=== PATIENT | female | born 1935 | race Caucasian/White ===

== ENCOUNTER 2018-02-12 12:44 | Inpatient (IN) | payer MEDICARE, OTHER ==
[~2018-02-12 12:44] MED LIST: CEFAZOLIN 2 Gram 2 GM/50 ML BAG IVPB ONE; CELECOXIB 100 MG CAPSULE PO ONE; FAMOTIDINE 20MG TABLET PO ONE; MECLIZINE 25 MG TABLET PO ONE; METOCLOPRAMIDE 10 MG TABLET PO ONE; VANCOMYCIN HCL 1,000 MG in DEXTROSE 5 % IN WATER 250 ML IVPB ONE
[2018-02-12] MEDS ORDERED: EPHEDRINE SULFATE 50 MG/ML ML IV ONE (14:00)
[2018-02-12] MEDS ORDERED: BUPIVACAINE 0.5% W/EPI MPF 30 ML VIAL IVP ONE (14:00)
[2018-02-12] MEDS ORDERED: LIDOCAINE 2% MDV (20MG/ML) 20ML VIAL IV ONE (14:00)
[2018-02-12] MEDS ORDERED: MIDAZOLAM HCL 2MG/2ML VIAL IV ONE (14:00)
[2018-02-12] MEDS ORDERED: PROPOFOL 10 MG/ML VIAL IV ONE (14:00)
[2018-02-12] MEDS ORDERED: TRANEXAMIC ACID 1,000 MG/10 ML ML IV ONE (14:00)
[2018-02-12 14:45] LABS: ABO GROUP B; ANTIBODY SCREEN NEGATIVE (NEGATIVE); RH TYPE POSITIVE
[2018-02-12] MEDS ORDERED: BISACODYL 10 MG SUPP RC PRN (17:55)
[2018-02-12] MEDS ORDERED: ACETAMINOPHEN 325 MG TAB PO PRN (17:55)
[2018-02-12] MEDS ORDERED: HYDROCODONE/APAP 5/325MG TABLET PO PRN (17:55)
[2018-02-12] MEDS ORDERED: DIPHENHYDRAMINE HCL 25 MG CAPSULE PO PRN (17:55)
[2018-02-12] MEDS ORDERED: NALOXONE 0.4 MG/1 ML VIAL IVP PRN (17:55)
[2018-02-12] MEDS ORDERED: HYDROMORPHONE HCL 2 MG/ML VIAL IM PRN (17:55)
[2018-02-12] MEDS ORDERED: ZOLPIDEM TARTRATE 5 MG TABLET PO PRN (17:55)
[2018-02-12] MEDS ORDERED: TRAMADOL HCL 50 MG TABLET PO PRN (17:55)
[2018-02-12] MEDS ORDERED: KETOROLAC 30 MG/ML VIAL IVP PRN ×2 (17:55)
[2018-02-12] MEDS ORDERED: ONDANSETRON HCL IV 4 MG/2 ML VIAL IVP PRN (17:55)
[2018-02-12] MEDS ORDERED: MAGNESIUM HYDROXIDE 30 ML UDC PO PRN (17:55)
[2018-02-12] MEDS ORDERED: HYDROCODONE/APAP 10/325 TABLET PO PRN (17:55)
[2018-02-12] MEDS ORDERED: ACETAMINOPHEN W/ CODEINE 300MG/60MG TABLET PO PRN ×2 (17:55)
[2018-02-12] MEDS ORDERED: AL HYDROX/MAG HYDROX 30ML UD PO PRN (17:55)
[2018-02-12] MEDS: POTASSIUM CHLORIDE/D5-0.9%NACL 20 MEQ/1,000 ML BAG IV SCH (19:50)
[2018-02-12] MEDS: ATENOLOL 25 MG TABLET PO SCH (22:23)
[2018-02-12] MEDS: ATORVASTATIN 20 MG TABLET PO SCH (22:23)
[2018-02-12] MEDS: DOCUSATE SODIUM 100 MG CAPSULE PO SCH (22:23)
[2018-02-12] MEDS: CEFAZOLIN 2 Gram 2 GM/50 ML BAG IVPB SCH (23:20)
[2018-02-13] MEDS: HYDROCODONE/APAP 10/325 TABLET PO PRN ×6 (01:27→23:00)
[2018-02-13] MEDS: POTASSIUM CHLORIDE/D5-0.9%NACL 20 MEQ/1,000 ML BAG IV SCH ×2 (03:00→11:36)
[2018-02-13 06:51] LABS: HEMATOCRIT 33.2 % (35.0-47.0); HEMOGLOBIN 10.7 gm/dl (11.6-16.0)
[2018-02-13] MEDS: LEVOTHYROXINE SODIUM 25 MCG TABLET PO SCH (06:59)
[2018-02-13] MEDS: CEFAZOLIN 2 Gram 2 GM/50 ML BAG IVPB SCH ×2 (08:09→14:47)
--- NOTE | 2018-02-13 09:41 | Rehab Evaluation ---
Patient Information - Patient Information Diagnosis: R knee DJD Ordered Treatment: PT Evaluate and Treat Status: Initial Evaluation Surgery: Yes (TKA) Date of Surgery: 02/12/18 Past Medical/Surgical Hx: PAST MEDICAL/SURGICAL HISTORY Past Surgical History RTKA RTHA hyst humberto bowel resection c scope tonsils PMH - Respiratory Hx Respiratory Disorders No PMH - Cardiovascular Hx Cardiovascular Disorders Yes Hx Hypertension Yes: good control on meds Hx Irregular Heartbeat Yes: in past related to hypertension Exercise Tolerance Good PMH - Neuro Hx Neurological Disorders Yes Hx Headaches Yes: occassional PMH - GI Hx Gastrointestinal Disorders Yes Comment: resection for twisted bowel. loose stools since abx 1 mo ago for mastitis PMH - Hx Genitourinary Disorders No PMH - Endocrine Hx Endocrine Disorders Yes Hx Thyroid Disease Yes: on meds has benign nodules PMH - Musculoskeletal Hx Musculoskeletal Disorders Yes Hx Arthritis Yes: knees, shoulders,hands Hx Osteoporosis Yes PMH - Psych Hx Psychiatric Problems No Hx Depression Yes: in past PMH - Hematology/Oncology Hx Hematology/Oncology No Disorders Premorbid Status: Detail (Prior to hospitalization the patient was independent with all mobility and ambulated without assistive device.) Social History: Detail (The patient lives in an apartment alone with an elevator at the enterance- no stairs. The patient's bathroom in her apartment is equipped with a [id number] and elevated toilet seat. The patient does not have a walker but stated the Rehab at her apartment complex ( [facility]) will provide one. The patient has a standard can and hip kit from previous TH[facility].) Precautions: [place], Fall, Other (WBAT on the R LE.) - Time With Patient Total Time Spent With Patient (Min): 30 Treatment Procedures: Detail (Initial Evaluation and gait training.) Subjective Information - Subjective Information Per Patient (The patient complains of pain behind her R knee and difficulty moving R foot up. The patient did not rate her pain using the 0-10 pain scale.) Objective Data - Mental Status Patient Orientation: Oriented x3 - Visual Perception Appears within normal limits for therapeutic activities - ROM Not within normal limits (The patient's R knee AROM is limited s/p surgery. The patient's R ankle was passively stretched to neutral. All other AROM was WNL.) - Strength/Tone Not within normal limits (The patient's R ankle strength was in plantar flexors 4+/5, trace dorsiflexion was noted initially, after ambulating the patient was able to dorsiflexion through 25 percent of range. All other R LE strength was functional. The patient's L LE strength was 4+ to 5/5.) - Bed Mobility Independent (The patient was independent with supine to and from sit transer.) - Transfers Independent (The patient was independent with sit to stand transfer with verbal cue to push up for the surface.) - Balance Balance Sitting: Good Balance Standing: Fair (The patient required walker for support.) - Sensation Intact (The patient's sensation was intact to light touch in R LE.) - Gait Detail (The patient ambulated with wheeled walker a distance of 50 feet with supervision for safety and WBAT on the R LE. The patient was able to clear R foot but exhibited decreased heel to toe weight transfer.) Therapy Assessment - Therapy Assessment Detail (The patient was independent with bed mobility and required verbal cues for proper technique for transfers. The patient ambulated with supervision for safety only. The patient's R dorsiflexion movement improved after ambulating to 25 percent of AROM. Feel the patient will progress well with mobilty.) Problem List - Problem List Physical Therapy Problem List: Detail (1) Decreased R LE strength and knee AROM 2) Supervision for safety with ambulation) Goals - Goals Physical Therapy Goals: 1) The patient will be independent with a HEP of TKA exercises. 2) The patient will be independent with all transfers. 3) The patient will ambulate independent with wheeled walker a distance of 120 WBAT on the R LE. 4) Increase R LE strength 1/3 muscle grade. Prognosis - Prognosis Good Plan - Plan Physical Therapy Plan: PT 1-2 times a day until all inpatient PT goals have been met for gait training, transfer training, LE strengthening exercises and instruction in HEP.
[2018-02-13 09:51] LABS: BLOOD UREA NITROGEN 17 mg/dL (8-23); CREATININE 0.9 mg/dL (0.5-0.9); EST GLOMERULAR FILTRATION RATE > 60 mL/min; GLUCOSE,RANDOM 186 mg/dL (74-109)
[2018-02-13] MEDS: ATENOLOL 25 MG TABLET PO SCH ×2 (10:41→23:00)
[2018-02-13] MEDS: AMLODIPINE BESYLATE 5MG TAB PO SCH (10:42)
[2018-02-13] MEDS: DOCUSATE SODIUM 100 MG CAPSULE PO SCH ×2 (10:42→23:00)
[2018-02-13] MEDS: RIVAROXABAN 10 MG TABLET PO SCH (10:43)
[2018-02-13] MEDS: FERROUS SULFATE 325 MG TAB PO SCH (10:43)
[2018-02-13] MEDS: LISINOPRIL 10 MG TABLET PO SCH (10:43)
[2018-02-13] MEDS: ASPIRIN 81 MG TABEC PO SCH (10:43)
--- NOTE | 2018-02-13 14:56 | Rehab Evaluation ---
Patient Information - Patient Information Diagnosis: R knee DJD Ordered Treatment: OT Evaluate and Treat Status: Initial Evaluation Surgery: Yes (TKA) Date of Surgery: 02/12/18 Past Medical/Surgical Hx: PAST MEDICAL/SURGICAL HISTORY Past Surgical History RTKA RTHA hyst humberto bowel resection c scope tonsils PMH - Respiratory Hx Respiratory Disorders No PMH - Cardiovascular Hx Cardiovascular Disorders Yes Hx Hypertension Yes: good control on meds Hx Irregular Heartbeat Yes: in past related to hypertension Exercise Tolerance Good PMH - Neuro Hx Neurological Disorders Yes Hx Headaches Yes: occassional PMH - GI Hx Gastrointestinal Disorders Yes Comment: resection for twisted bowel. loose stools since abx 1 mo ago for mastitis PMH - Hx Genitourinary Disorders No PMH - Endocrine Hx Endocrine Disorders Yes Hx Thyroid Disease Yes: on meds has benign nodules PMH - Musculoskeletal Hx Musculoskeletal Disorders Yes Hx Arthritis Yes: knees, shoulders,hands Hx Osteoporosis Yes PMH - Psych Hx Psychiatric Problems No Hx Depression Yes: in past PMH - Hematology/Oncology Hx Hematology/Oncology No Disorders Premorbid Status: Detail (Prior to hospitalization the patient was independent with all mobility and ambulated without assistive device.) Social History: Detail (The patient lives alone in a 4th floor apartment with an elevator at the entrance- no stairs. The patient's bathroom in her apartment is equipped with a [id number] with grab bar, no seat and elevated toilet seat, no grab bar. The patient has a standard cane, 2 wheeled walker and hip kit from previous THR. She states staff complete all home mgmt and meal prep and she is only responsible for light laundry tasks.) Precautions: [place], Fall, Other (WBAT on the R LE.) - Time With Patient Total Time Spent With Patient (Min): 45 Treatment Procedures: Detail (OT eval low complexity) Subjective Information - Subjective Information Per Patient Objective Data - Pain Pain Present: Yes (3-12/18) - Mental Status Patient Orientation: Oriented x3 - Visual Perception Appears within normal limits for therapeutic activities - ROM Not within normal limits (Left UE AROM WNL, Right UE limited due to injury.) - Strength/Tone Not within normal limits (Left UE MMT 5/5, right UE strength functional but not formally tested.) - Coordination Appears within normal limits for therapeutic activities - Bed Mobility Independent (Ind with supine to sit.) - Transfers Independent (Ind with sit to stand from EOB and chair.) - Balance Balance Sitting: Good Balance Standing: Good - Sensation Intact - Gait Detail (Pt ambulating in room with 2 wheeled walker Indly.) - ADL's/IADL's Detail (Pt able to recall modified dressing technique and completed total body dressing Indly. She was able to amb to bathroom and complete all grooming/ hygiene tasks Indly at sink.) Therapy Assessment - Therapy Assessment Detail (Pt is safe and Ind with total body dressing, grooming and hygiene tasks. ) Problem List - Problem List Physical Therapy Problem List: Detail (1) Decreased R LE strength and knee AROM 2) Supervision for safety with ambulation) Occupational Therapy Problem List: Detail (No current OT problems identified at this time.) Goals - Goals Physical Therapy Goals: 1) The patient will be independent with a HEP of TKA exercises. 2) The patient will be independent with all transfers. 3) The patient will ambulate independent with wheeled walker a distance of 120 WBAT on the R LE. 4) Increase R LE strength 1/3 muscle grade. Occupational Therapy Goals: No current IP OT goals identified. Prognosis - Prognosis Good Plan - Plan Physical Therapy Plan: PT 1-2 times a day until all inpatient PT goals have been met for gait training, transfer training, LE strengthening exercises and instruction in HEP. Occupational Therapy Plan: Discharge from IP OT at this time. Thank you for this referral.
--- NOTE | 2018-02-13 20:28 | Operative Note ---
DATE OF SURGERY: 02/12/2018 PREOPERATIVE DIAGNOSIS: END-STAGE ARTHROSIS OF THE RIGHT KNEE. POSTOPERATIVE DIAGNOSIS: END-STAGE ARTHROSIS OF THE RIGHT KNEE. PROCEDURE: CEMENTED RIGHT TOTAL KNEE ARTHROPLASTY USING PRICE & NEPHEW IMELDA II COMPONENTS, WITH A SIZE 5 COBALT CHROME FEMUR, SIZE 5 STEMMED TIBIAL BASEPLATE, AN 11 MM LIPPED TIBIAL INSERT, AND A 35 MM ALL-PLASTIC PATELLA. STAFF SURGEON: LEATHA NEWELL M.D. ANESTHESIA: SPINAL. PREPARATION: CHLORAPREP. INDIVIDUAL CONSIDERATIONS: NONE. PROCEDURE: The patient was taken to the Operating Room and placed supine on the operating table. She had a successful induction of a spinal anesthetic. Her right lower extremity was prepped and then draped in the usual fashion. The patient had an anterior approach to the knee. The limb was elevated and the tourniquet was inflated to 250 mmHg. Sharp dissection was carried down through the skin and subcutaneous tissues. Small veins were coagulated with a Bovie. A medial arthrotomy was performed. The patella was everted and the knee was flexed. She had a valgus knee with exposed bone medially with bone loss and advanced arthrosis of the patellofemoral compartment with large marginal osteophytes. The fat pad was resected, the ACL was sacrificed, provisional anterior meniscectomies were performed and the capsule was released from the medial proximal tibia. The initial femoral pilot captain hole was then made free hand. The intramedullary femoral cutting jig was placed. It was cut in 7.0 degrees of valgus and adjusted for rotation, secured with pins for a 10 mm resection. The initial transverse cut was then made. The skin guide was placed in the anterior and posterior pilot captain holes. It was found that a size 5 would be appropriate but I needed to translate it anteriorly 2 mm to fit. The anterior and posterior cuts followed by chamfer cuts were made, osteophytes were removed, and a size 5 trial was placed and found to fit well. The tibia was brought forward and the remainder of the meniscal remnants were removed with a Bovie. The extraarticular tibial cutting jig was placed. It was cut in neutral with a 3-degree AP slope. Care was taken to adjust for rotation and flexion using the extraarticular alignment guide and bony landmarks. It was set for a 9 mm resection, keyed off the high medial side, and secured with pins. When cutting the tibia, care was taken to preserve the PCL insertion on the tibia. After removing large osteophytes, I was still able to fit a size 5 baseplate. It was adjusted for rotation and secured with pins. With an 11 mm trial and the femoral trial, there was excellent motion and stability, ligamentous balance, rotation, and alignment were thought to be normal. The femoral pilot captain holes were impacted and the triflange tibial stamp was impacted and these trial components were removed. The patient had a moderately thick patella, just enough given her diminutive stature and I was able to remove roughly 9 mm of bone free hand and easily able to fit a 32 mm patella. The three pilot captain holes were then drilled. The tourniquet was then let down briefly to get bleeders posteriorly and then it was placed back up again. The knee was then thoroughly irrigated out with pulsatile Betadine and saline to remove any visual or palpable debris. Bony surfaces were then dried. A size 5 stemmed tibial baseplate was cemented into place, followed by impaction of the 11 mm lipped tibial insert, followed by cementing in the size 5 Carmine Chrome femur, followed by cementing in the 32 mm patella. Implant surfaces were compressed, excess cement was removed, and after the cement had set, there was excellent motion and stability, ligamentous balance, rotation and alignment and patellofemoral tracking were normal. No lateral release was required. The tourniquet was let down and hemostasis was obtained with the Bovie. Again, thorough irrigation. I then infiltrated the skin and subcutaneous tissue and periosteum with 30 mL of 0.5% Marcaine with Epinephrine. The capsule was then closed with a running #2 Quill, the subcu was closed in layers with a running 0 Quill, and the skin was closed with ciro. The patient did receive 1 gram of Tranexamic Acid preoperatively. I mixed 1 gram of Tranexamic Acid with 30 mL of saline and injected it into the knee through a sterile #18 gauge needle and a sterile Bulkee compressive CHOLO-type dressing was applied. The patient tolerated the procedure well. Needle and sponge counts were correct., estimated blood loss was minimal and she was taken back to Recovery in good condition. There were no complications. JOB NUMBER: [id number] MTDD
[2018-02-13] MEDS: ATORVASTATIN 20 MG TABLET PO SCH (23:00)
[2018-02-14] MEDS: LEVOTHYROXINE SODIUM 25 MCG TABLET PO SCH (06:18)
[2018-02-14] MEDS: HYDROCODONE/APAP 10/325 TABLET PO PRN ×2 (06:18→12:19)
[2018-02-14 06:21] LABS: HEMATOCRIT 29.9 % (35.0-47.0); HEMOGLOBIN 9.4 gm/dl (11.6-16.0)
[2018-02-14 06:49] LABS: BLOOD UREA NITROGEN 16 mg/dL (8-23); CREATININE 0.9 mg/dL (0.5-0.9); EST GLOMERULAR FILTRATION RATE > 60 mL/min; GLUCOSE,RANDOM 102 mg/dL (74-109)
--- NOTE | 2018-02-14 07:24 | RADIOLOGY REPORT ---
EXAM: CHEST, SINGLE VIEW HISTORY: SUBACUTE REHAB PLACEMENT. TECHNIQUE: AP portable view of the chest was obtained. Comparison: None. FINDINGS: There is a thoracic levoscoliosis. Mild cardiomegaly. No definite acute infiltrate is seen. No pleural effusion or pneumothorax evident. Advanced degenerative arthritis right shoulder. Thoracolumbar dextroscoliosis as well. IMPRESSION: 1. THORACIC LEVOSCOLIOSIS AND THORACOLUMBAR DEXTROSCOLIOSIS. 2. MILD CARDIOMEGALY. 3. ADVANCED DEGENERATIVE ARTHRITIS RIGHT SHOULDER. [facility]BER: [id number] [facility]
--- NOTE | 2018-02-14 10:23 | Physical Therapy Tx Note ---
Physical Therapy Tx Note - Treatment Note Tolerated: Good Total Time Spent With Patient: 30 Physical Therapy Tx Note: Detail (Patient was seated in chair upon PRODUCTION CONTROL EXPEDITER arrival. Patient states knee stiff and painful this morning. Patient transferred sit to and from stand SBA x1. Patient ambulated 164 feet with wheeled walker SBA x1. Patient transferred sit to supine independently. Patient performed the following exercises x10 reps each: ankle pumps, quad sets, glut squeezes, heel slides, hamstring sets, and SLR. Patient tolerated treatment well. Patient reports posterior knee sore. Patient was left reclined in bed with cryo to posterior knee and call light within reach.) Physical Therapy Problem List: Detail (1) Decreased R LE strength and knee AROM 2) Supervision for safety with ambulation) Physical Therapy Goals: 1) The patient will be independent with a HEP of TKA exercises. 2) The patient will be independent with all transfers. 3) The patient will ambulate independent with wheeled walker a distance of 120 WBAT on the R LE. 4) Increase R LE strength 1/3 muscle grade. Prognosis: Good Physical Therapy Plan: PT 1-2 times a day until all inpatient PT goals have been met for gait training, transfer training, LE strengthening exercises and instruction in HEP.
[2018-02-14] MEDS: ASPIRIN 81 MG TABEC PO SCH (12:20)
[2018-02-14] MEDS: DOCUSATE SODIUM 100 MG CAPSULE PO SCH ×2 (12:20→22:44)
[2018-02-14] MEDS: AMLODIPINE BESYLATE 5MG TAB PO SCH (12:21)
[2018-02-14] MEDS: FERROUS SULFATE 325 MG TAB PO SCH (12:21)
[2018-02-14] MEDS: ATENOLOL 25 MG TABLET PO SCH ×2 (12:22→22:44)
[2018-02-14] MEDS: RIVAROXABAN 10 MG TABLET PO SCH (12:22)
[2018-02-14] MEDS: LISINOPRIL 10 MG TABLET PO SCH (12:23)
--- NOTE | 2018-02-14 14:15 | Physical Therapy Tx Note ---
Physical Therapy Tx Note - Treatment Note Tolerated: Good Total Time Spent With Patient: 20 Physical Therapy Tx Note: Detail (Patient was left seated on edge of bed upon COMPRESSOR BATTERY PELLETS arrival. Patient states posterior right knee still painful this afternoon. Patient transferred sit to and from stand independently. Patient ambulated 210 feet with wheeled walker SBA x1. Patient performed the following exercises seated in chair x10-15 reps each: heel raises, toe raises, marching, quad sets, glut squeezes, heel slides, and hamstring sets. Patient tolerated treatment well. Patient reports knee sore after treatment. Patient was left seated in chair with cryo on knee. Patient discharged from inpatient PT at this time as all PT goals are met.) Physical Therapy Problem List: Detail (1) Decreased R LE strength and knee AROM 2) Supervision for safety with ambulation) Physical Therapy Goals: 1) The patient will be independent with a HEP of TKA exercises. 2) The patient will be independent with all transfers. 3) The patient will ambulate independent with wheeled walker a distance of 120 WBAT on the R LE. 4) Increase R LE strength 1/3 muscle grade. Prognosis: Good Physical Therapy Plan: Patient discharged from inpatient PT at this time due to all inpatient PT goals are met.
--- NOTE | 2018-02-14 19:45 | Discharge Summary ---
DATE OF ADMISSION: 02/12/2018 DATE OF DISCHARGE: 02/15/2018 DATE OF SURGERY: 02/12/2018 HISTORY: Cinda is a delightful 82-year-old female who presents with end-stage arthrosis of her right knee. She was admitted after right total knee arthroplasty. Postoperatively, she did well. Her hospital course was unremarkable. Her discharge hemoglobin was 9.4. She did not require transfusion. DISCHARGE INSTRUCTIONS: The plan is to transfer her to rehab. She has [place] for pain. She will need to continue on for another two days after discharge of daily Xarelto and then her daily Aspirin after that will be sufficient for DVT prophylaxis. Her sutures should be removed at the Facility on February 26. She should follow-up in my office in four weeks. Discharge condition was good. FINAL DIAGNOSIS/PRIMARY DIAGNOSIS: END-STAGE ARTHROSIS OF THE RIGHT KNEE. SECONDARY DIAGNOSIS: OPERATIVE BLOOD LOSS ANEMIA. OPERATIONS AND PROCEDURES: CEMENTED RIGHT TOTAL KNEE ARTHROPLASTY. JOB NUMBER: [id number] MTDD
[2018-02-14] MEDS: ATORVASTATIN 20 MG TABLET PO SCH (22:44)
[2018-02-15] MEDS: LEVOTHYROXINE SODIUM 25 MCG TABLET PO SCH (06:30)
[2018-02-15] MEDS: HYDROCODONE/APAP 10/325 TABLET PO PRN (09:05)
[2018-02-15] MEDS: FERROUS SULFATE 325 MG TAB PO SCH (09:48)
[2018-02-15] MEDS: DOCUSATE SODIUM 100 MG CAPSULE PO SCH (09:48)
[2018-02-15] MEDS: LISINOPRIL 10 MG TABLET PO SCH (09:49)
[2018-02-15] MEDS: ATENOLOL 25 MG TABLET PO SCH (09:49)
[2018-02-15] MEDS: ASPIRIN 81 MG TABEC PO SCH (09:49)
[2018-02-15] MEDS: RIVAROXABAN 10 MG TABLET PO SCH (09:49)
[2018-02-15] MEDS: AMLODIPINE BESYLATE 5MG TAB PO SCH (09:49)
== END 2018-02-15 10:41 | DRG 470 ==
LOC: SUR 12:44 → MEDSURG 12:44 → EDSTATUS 13:00 → SUR 18:59 → MEDSURG 18:59
PROVIDERS: ADMIT Orthopaedic Surgery; ATTEND Orthopaedic Surgery
PROC: 0SRC06A Replacement of Right Knee Joint with Oxidized Zirconium on Polyethylene Synthetic Substitute, Uncemented, Open Approach (ICD-10-PCS; principal; 2018-02-12 15:00)
DX: M17.11 Unilateral primary osteoarthritis, right knee (principal); I10 Essential (primary) hypertension; E78.00 Pure hypercholesterolemia, unspecified
CPT/HCPCS: 71045; 80048; 85014; 85018; 86850; 86900; 86901; 97110; 97530; C1776; J1885; J3480; J7060